=== PATIENT | male | born 2000 | race Caucasian/White ===

== ENCOUNTER 2025-05-22 16:46 | Emergency (ER) | payer OTHER, SELFPAY ==
[2025-05-22 16:47] VITALS: BP 156/88; PULSE 90; RESP 18; TEMP 36.9; O2SAT 96; BMI 28.1
[2025-05-22] MEDS: Ketorolac 30 MG/ML Syringe IV (17:20)
[2025-05-22] MEDS: 0.9% Normal Saline (1000mL) 1,000 ML 999 ML IV (17:21)
[2025-05-22] MEDS: DiphenhydrAMINE 50 MG/ML Syringe IV (17:21)
--- NOTE | 2025-05-22 17:40 | CT_ITS ---
PROCEDURE: CT/Brain/Head without Contrast
--- NOTE | 2025-05-22 18:26 | EX.ED.DYSGE1 ---
HPI History of Present Illness Chief Complaint: Headache Informant: patient and spouse/S.O. Narrative Narrative: Patient is a 24-year-old male who reports no significant past medical history. He states over the past 1 to 2 weeks he has had a headache. He describes the headache as a pressure sensation. He states it feels localized more in the posterior aspect of his head. He states that it will occasionally lead to a bout of nausea and vomiting. He states there is been no recent trauma prior to the headaches began. He denies any sick symptoms such as fevers or chills nasal congestion sore throat or cough. He states that he does use nicotine and caffeine but states he has been doing them as he normally does going against withdrawal symptoms headache. He denies any family history of brain mass/tumor but with his consistent headache he is concerned and therefore presents for evaluation [facility] Medical History no medical history no medical history Allergy/AdvReac Type Severity Reaction Status Date / Time No Known Allergies Allergy Verified 05/22/25 16:47 Social History Smoking Status: Never smoker [facility] ED Constitutional Constitutional ED: Denies chills or fever(s) Eyes Eyes: Denies blurry vision or change in vision ENT ENT ED: Denies rhinorrhea or sore throat Cardiovascular Cardiovascular: Denies chest pain Respiratory/Chest Respiratory/Chest: Denies cough or dyspnea Gastrointestinal Gastrointestinal: Reports nausea and vomiting; Denies abdominal pain or diarrhea Musculoskeletal Musculoskeletal: Denies myalgias or neck pain Integumentary Denies rash Neurologic Neurologic: Reports headache(s); Denies paresthesias or weakness Hematologic/Lymphatic Hematologic/Lymphatic: Denies easy bleeding or easy bruising EXAM Physical Exam Const Vital Signs: 05/22/25 16:47 Temperature 98.5 F Temperature Source Oral Pulse Rate 90 Respiratory Rate 18 Blood Pressure 156/88 H Blood Pressure Mean 110 Pulse Ox 96 Oxygen Delivery Method Room Air Positive well nourished and well developed General Appearance ED: well developed; Negative for pallor HEENT HEENT Narrative: Normocephalic atraumatic Bilateral TMs reveal no signs of infection Posterior pharynx exam reveals mild cobblestoning consistent with sinus drainage but no secondary findings to suggest infection. Eyes PERRL and EOMs intact bilaterally General Eye ED: Negative for scleral icterus Neck supple Neck Narrative: No nuchal rigidity or meningeal signs Resp normal respiratory effort and clear to auscultation bilaterally Cardio regular rate and regular rhythm Rate: other Other Details: Heart is regular rate and rhythm without murmurs rubs or gallop Radial and carotid pulses are equal and symmetric No carotid bruit noted GI normal to inspection, nondistended, normoactive bowel sounds, non-tender, non-distended and no masses Auscultation: normoactive bowel sounds Palpation: soft Extremity normal to inspection Neuro oriented x3, CN's II-XII intact bilaterally and no sensory deficits noted Neuro Narrative: GCS of 15 Cranial nerves II through XII are grossly intact without focal neurologic deficit No pronator drift no dysmetria no truncal ataxia NIH stroke scale score of 0 Sensorium / Orientation: alert Motor Exam: strength 5/5 throughout Psych mental status grossly normal Skin no rashes or lesions noted and no wounds General Skin Exam: Negative for jaundice or pallor MDM MDM MDM Narrative Medical decision making narrative: Patient arrived to the ER slightly hypertensive otherwise with stable vitals. He reported a headache off and on for the past 1 to 2 weeks without trauma or sick symptoms. In order to assess for potential spontaneous subarachnoid or subdural hemorrhage or potential brain mass I did like to perform a noncontrast CT of the head. He denied any recent sick symptoms but with mild drainage in the posterior pharynx headache could be related to viral syndrome such as COVID influenza or RSV so viral swab was obtained. The patient did not have any neck stiffness or fever and my concern for meningitis is low so I felt no need for lumbar puncture. The viral swab was negative for infection. Head CT revealed no bleed or mass. After receiving IV fluids Toradol Benadryl and Reglan patient reported resolution of his headache and his neurologic exam remained normal. Blood pressure also improved after resolution of the head. Therefore at this time with normal neurologic exam no obvious findings for infection by physical exam and viral swab and resolution of symptoms do not feel need for further workup and is otherwise safe for discharge. History & Record Review Discussion w/independent historian: Patient Radiography Diagnostic Testing: Clinical Impression(s) from Imaging Studies Brain CT 05/22/25 17:40 IMPRESSION: Unremarkable head CT. Reading Location: [facility] Discharge Plan Triage Chief Complaint: Headache ED Provider: Stanislav Ortega Dx/Rx/DC Orders Clinical Impression: Cephalgia Instructions: ED Headache Unspecified Primary Care Provider: Rick Doherty Referrals: Rick Doherty MD [Primary Care Provider, Family Practice] Activity Restrictions/Additional Instructions: Your CT scan showed no sign of brain bleed or tumor or signs of infection. If your headache persists you will need to follow-up with your family doctor and discuss referral to a neurologist/headache specialist. Return to the ER should you have any further concerns Print Language: Colombian Disposition Disposition: Home, Self Care Discharge Date/Time: 05/22/25 18:39
[2025-05-22 18:38] VITALS: BP 134/78; PULSE 76; RESP 18; TEMP 36.6; O2SAT 99
== END 2025-05-22 18:39 | disposition home or self-care (01) ==
PROVIDERS: Emergency Provider Emergency Medicine; PCP Family Medicine; Visit Provider Emergency Medicine
DX: R51.9 Headache, unspecified (principal)
CPT/HCPCS: 70450; 87631; 96361; 96374; 96375; 99283; A4216